=== PATIENT | male | born 1980 | race Caucasian/White ===

== ENCOUNTER 2023-04-09 10:46 | Outpatient (CLI) | payer OTHER, SELFPAY | END 2023-04-09 10:47 | disposition home or self-care (01) | LOC: RT 10:46 | PROVIDERS: PCP Nurse Practitioner Family; Visit Provider Chiropractor | DX: J40 Bronchitis, not specified as acute or chronic (principal) | CPT/HCPCS: 94010 ==

== ENCOUNTER 2024-08-25 12:38 | Outpatient (CLI) | payer OTHER, SELFPAY ==
--- NOTE | 2024-08-25 12:40 | MR_ITS ---
WS: [id number] MRI LEFT KNEE HISTORY: L KNEE PAIN, lateral knee pain. COMPARISON: None available. Anterior cruciate ligament: Intact. Posterior cruciate ligament: Intact. Medial collateral ligament: Intact. Posterior lateral corner structures: Mild increased T2 signal in the popliteus tendon with a small amount of adjacent fluid. No full-thickness tear. Medial menisci: Intact. Normal signal, size and shape. Lateral meniscus: Intact. Normal signal, size and shape. Extensor mechanism: Distal quadriceps tendon and patellar tendons are intact. Fluid and soft tissue: No joint effusion. No Balderas's cyst. Osseous and articular structures: Patellofemoral compartment: Normal. Medial compartment: Normal. Lateral compartment: Very slight change in signal involving the weightbearing surface femoral condyle cartilage. Mild softening of the cartilage but no full- thickness defect. No marrow edema. MR/MR knee LT con* [id number] IMPRESSION: 1. No meniscal tear. 2. Mild popliteus tendon sprain. 3. No ACL tear. 4. 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 No underlying marrow edema.
--- NOTE | 2024-08-25 12:40 | MR_ITS ---
WS: [id number] MRI LEFT HAND WITHOUT CONTRAST. COMPARISON: Radiograph 04/16/2015 Multiplanar, multisequence imaging is performed without contrast. History: Chronic thumb pain. Moderate narrowing of the first carpometacarpal articulation with dorsal and lateral subluxation of the first metacarpal with respect to the trapezium. Small amount of fluid in the first carpometacarpal joint space. Hypertrophic bone formation consistent with osteophyte formation involving the trapezium and the proximal metacarpal. There are subchondral cystic changes at the metacarpal base and trapezium. The dorsal radial ligament is not identified. Anterior oblique ligament appears elongated and partially stripped from the first metacarpal. Triangular osseous density measures 5.8 mm along the medial first carpometacarpal joint. This may be a small osteophyte or bone fragment. Potentially could represent an accessory ossicle also. This is contributing to displacement of the anterior cold-like ligament. The extensor pollicis brevis tendon remains intact. No additional marrow edema within the bones of the hand. Very slight narrowing of the interphalangeal joints. No masses or ganglions are identified. Very mild early osteoarthritic changes at the first IP joint also. MR/MR hand LT wo con* [id number] IMPRESSION: 1. Dorsal lateral subluxation of the proximal first metacarpal with respect to the trapezium. 2. Subchondral cystic changes in the trapezium and base of the first metacarpa l with narrowing of the joint space and hypertrophic bone formation. 3. Partial stripping of the anterior oblique ligament. Dorsal radial ligament is not identified and may be completely torn or its small caliber. 4. Triangular intra-articular body at the CMC joint measures 5.8 mm. This may be an osteophyte or accessory ossicle or avulsion fracture with nonunion. No ac cessory ossicle or fracture was identified on prior radiograph of 04/16/2015 at t his location.
== END 2024-08-25 12:39 | disposition home or self-care (01) ==
LOC: RAD 12:39
PROVIDERS: PCP Nurse Practitioner Family; Visit Provider Nurse Practitioner Family
DX: S63.062A Subluxation of metacarpal (bone), proximal end of left hand, initial encounter (principal); M89.342 Hypertrophy of bone, left hand; S83.8X2A Sprain of other specified parts of left knee, initial encounter; X58.XXXA Exposure to other specified factors, initial encounter
CPT/HCPCS: 73218; 73721

== ENCOUNTER 2024-09-22 10:23 | Outpatient (CLI) | payer OTHER, SELFPAY ==
[2024-09-22 12:19] LABS: Glucose Urine UA Negative (Normal); Nitrate Urine Negative (Negative); Specific Gravity, Urine 1.006 (1.005-1.030)
[2024-09-22 12:25] LABS: Add Urine Microscopic? YES
[2024-09-22 12:26] LABS: Hematocrit 48.8 % (37-53); Hemoglobin 15.60 g/dL (11.27-16.99); Mean Corpuscular HGB Conc 32.0 g/dL (30-55); Mean Corpuscular Hemoglobin 26.7 pg (27-33); Mean Corpuscular Volume 83.6 fl (82-101); Nucleated Red Blood Cells % 0 %; Platelet Count 290 10^3/cmm (157-399); Red Blood Count 5.84 10^6/uL (3.85-5.65); White Blood Count 4.91 10^3/uL (3.29-11.43)
[2024-09-22 12:46] LABS: Alanine Aminotransferase 40 U/L (0-41); Albumin Level 4.4 g/dL (3.5-5.2); Alkaline Phosphatase 69 U/L (40-130); Anion Gap 14.3 (5-19); Aspartate Amino Transferase 24 U/L (0-40); Blood Urea Nitrogen 12 mg/dL (6-20); Calcium 8.7 mg/dL (8.5-10.5); Carbon Dioxide 26 mmol/L (22-29); Chloride 103 mmol/L (98-107); Globulin 2.9 g/dL (1.3-4.6); Glucose 91 mg/dL (65-115); Osmolality Calculated 287 mOsm/kg (285-295); Potassium 4.3 mmol/L (3.5-5.1); Sodium 139 mmol/L (136-145); Total Protein 7.3 g/dL (6.6-8.7)
== END 2024-09-22 10:24 | disposition home or self-care (01) ==
PROVIDERS: PCP Family Medicine Geriatric Medicine; Visit Provider Orthopaedic Surgery
DX: Z01.818 Encounter for other preprocedural examination (principal); M18.12 Unilateral primary osteoarthritis of first carpometacarpal joint, left hand
CPT/HCPCS: 36415; 80053; 81001; 85025; 99204

== ENCOUNTER 2024-10-26 06:54 | Day surgery (SDC) | payer OTHER, SELFPAY ==
[2024-10-26] VITALS (10 sets, daily range): BP systolic 117–152; BP diastolic 72–102; PULSE 63–90; RESP 10–18; TEMP 36.2–36.5; O2SAT 96–98; BMI 30.8
--- NOTE | 2024-10-26 07:41 | P.ANESASSM_ITS ---
Pre-Anesthetic Assessment Height/Weight: Height 1.96 m Weight 117.934 kg Temp Pulse Resp BP Pulse Ox O2 Del Method 97.2 F L 76 17 139/89 97 Room Air 10/26/24 07:13 10/26/24 07:13 10/26/24 07:13 10/26/24 07:13 10/26/24 07:13 10/26/24 07:14 Operation Date: 10/26/24 08:50 Proposed Procedures p LEFT FIRST Carpometacarpal Joint Fusion(Left) - Ken Yin MD Familial anesthetic complications: None Was Beta Denia taken within 24 hours: N/A Was Clonidine taken within 24 hours: N/A Last intake: Intake Last Liquid Date 10/25/24 Last Liquid Time 22:00 Last Solid Date 10/25/24 Last Solid Time 20:00 Social No alcohol and No tobacco Exam alert, oriented x 3, clear to auscultation bilaterally and regular rate & rhythm Airway Mallampati: Class I Dentition: other ([place]ising) Anesthetic Plan ASA status: 1 Anesthesia: General Risk of > 500 ml blood loss (7ml/kg in children): No Medications/Allergies Home Medications ?Medication ?Instructions ?Recorded ?Confirmed ?Last Taken ?Type meloxicam 7.5 mg tablet 7.5 mg PO DAILY PRN Pain (Sc lorna 10/19/24 10/26/24 10/11/24 History Score 1-3) methocarbamol 750 mg tablet 750 mg PO DAILY PRN Pain 0 10/19/24 10/26/24 10/11/24 History Allergies Allergy/AdvReac Type Severity Reaction Status Date / Time No Known Allergies Allergy Verified 10/26/24 06:59 Current Medications Generic Name Dose Route Start Last Admin Trade Name Freq PRN Reason Stop Dose Admin Sodium Chloride 1,000 mls @ 30 mls/hr 10/26/24 07:00 10/26/24 07:26 Sodium Chloride 0.9% IV 10/27/24 06:59 30 mls/hr .Q24H CLAUDIA Administration PFSH Anesthesia Social History Smoking and tobacco/nicotine status: never used tobacco/nicotine
--- NOTE | 2024-10-26 08:19 | W.PM.OPSUD ---
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
[2024-10-26] MEDS: ceFAZolin 2,000 mg SDV 2000 MG IVP (08:38)
[2024-10-26] MEDS: BUPivacaine 0.5% INJ 30 mL INJECTION (09:53)
--- NOTE | 2024-10-26 09:56 | P.OP_ITS ---
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 Anesthesia: General Tourniquet time: 31 minutes at 250 mmHg EBL: None Indications: Omar is a 44-year-old white male presented the orthopedic clinic with debilitating pain at the base of his left thumb. He has difficulty gripping grasping. He is losing opposition of the thumb. X-rays demonstrated subluxation of the first metacarpal off of the trapezius as well as osteoarthritic changes in the area. 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 He is understanding he will lose opposition of the thumb but the majority of the functions of his hand will remain the same. All risk benefits treatment alternatives discussed he is agreeable to this at this time. Procedure: After obtaining consent patient was taken to the operating room on his [facility] and had general anesthetic administered. Once good anesthesia achieved pneumatic cuffs placed on the proximal left arm. Left arm was prepped and draped usual fashion After surgical timeout Esmarch wrap was used to exsanguinate the arm and then the tourniquet was inflated to 250 mmHg. A curvilinear incision was made along the border between the volar and dorsal skin lines of the left hand just over the first CMC joint of left thumb. Sharp dissection taken down to subcutaneous tissue electrocautery used to hemostasis. Sharp dissection taken on down between anatomic structures to the bony surface of the joint and capsule was raised both dorsally and volarly to expose the joint. At this point using a small bur the remainder of the articular cartilage was removed from both bones. Then they were sculpted to fit together in a neutral position. Also a drill hole was placed on up into the medullary canal of the first metacarpal to allow for blood flow. Once adequate debridement had been achieved bone morphogenic protein was placed between the 2 bones and impacted. The thumb was then held on the neutral position with slight abduction and extension, and pinned in place with three 0.45 K wires. Interoperative fluoroscopy demonstrated adequate fixation and positioning of the joint. Further BMP was packed around the joint line and deep structure reapproximated 3-0 Vicryl [id number] sutures. Subcutaneous tissue reapproximated 3-0 Vicryl interrupted sutures. Skin was closed with 3-0 running nylon suture. Pin balls were placed over each of the pins and the pins were cut after appropriate length. Pneumatic cuff deflated after 31 minutes of tourniquet time. Wound was then dressed with Xeroform gauze sterile gauze dressing sterile Webril and a thumb spica splint was applied with Fei wrap for compression. Patient was awakened transferred to cover stable condition It should also be noted that 15 cc of half of percent Marcaine was placed in the wound area for postoperative pain management.
--- NOTE | 2024-10-26 11:15 | ANE.PACU2 ---
Inpatient post-anesthesia follow up: Airway intact: Yes Vital signs: Temperature 97.1 F Pulse Rate 63 Respiratory Rate 16 Blood Pressure 149/97 Pulse Oximetry 96 Oxygen Delivery Me thod Room Air Oxygen Flow Rate Fraction of Inspir ed Oxygen Hydration adequate: Yes Nausea and vomiting: No Pain level: 1 Mental status: Baseline
== END 2024-10-26 11:18 | disposition home or self-care (01) ==
PROVIDERS: PCP Family Medicine Geriatric Medicine; Visit Provider Orthopaedic Surgery
PROC: (CPT 26860; principal; 2024-10-26 08:40)
DX: M19.042 Primary osteoarthritis, left hand (principal)
CPT/HCPCS: 26860; C1713; C1734; J0131; J0690; J1100; J1885; J2250; J2405; J2704; J3010; J3490; J7030; J9999

== ENCOUNTER → 2024-11-08 08:27 | Outpatient (BNVA) | payer OTHER, SELFPAY | PROVIDERS: PCP Family Medicine Geriatric Medicine; Visit Provider Student in an Organized Health Care Education/Training Program | DX: M25.562 Pain in left knee (principal); M94.262 Chondromalacia, left knee; S83.92XA Sprain of unspecified site of left knee, initial encounter; X58.XXXA Exposure to other specified factors, initial encounter | CPT/HCPCS: 73560; 73565 ==

== ENCOUNTER 2024-11-08 09:45 | Outpatient (CLI) | payer OTHER, SELFPAY | END 2024-11-08 09:46 | LOC: SPT 09:46 | PROVIDERS: PCP Family Medicine Geriatric Medicine; Visit Provider Student in an Organized Health Care Education/Training Program | DX: Z46.89 Encounter for fitting and adjustment of other specified devices (principal); M17.12 Unilateral primary osteoarthritis, left knee; M94.262 Chondromalacia, left knee | CPT/HCPCS: L1851 ==

== ENCOUNTER → 2024-11-10 09:17 | Outpatient (BNVA) | payer OTHER, SELFPAY | PROVIDERS: PCP Family Medicine Geriatric Medicine; Visit Provider Orthopaedic Surgery | DX: M25.532 Pain in left wrist (principal); M18.12 Unilateral primary osteoarthritis of first carpometacarpal joint, left hand | CPT/HCPCS: 29075; 73110; 99024 ==

== ENCOUNTER → 2024-11-29 10:46 | Outpatient (BNVA) | payer OTHER, SELFPAY | PROVIDERS: PCP Family Medicine Geriatric Medicine; Visit Provider Orthopaedic Surgery | DX: M18.12 Unilateral primary osteoarthritis of first carpometacarpal joint, left hand (principal); M79.642 Pain in left hand | CPT/HCPCS: 29075; 73110; 99024 ==

== ENCOUNTER → 2024-12-27 08:12 | Outpatient (BNVA) | payer OTHER, SELFPAY | PROVIDERS: PCP Family Medicine Geriatric Medicine; Visit Provider Orthopaedic Surgery | DX: M18.12 Unilateral primary osteoarthritis of first carpometacarpal joint, left hand (principal) | CPT/HCPCS: 73110 ==

== ENCOUNTER 2024-12-27 10:39 | Outpatient (CLI) | payer OTHER, SELFPAY | END 2024-12-27 10:40 | disposition home or self-care (01) | LOC: SPT 10:40 | PROVIDERS: PCP Family Medicine Geriatric Medicine; Visit Provider Orthopaedic Surgery | DX: Z47.89 Encounter for other orthopedic aftercare (principal); Z98.890 Other specified postprocedural states | CPT/HCPCS: 99024; L3807 ==

== ENCOUNTER → 2025-01-24 07:56 | Outpatient (BNVA) | payer OTHER, SELFPAY | PROVIDERS: PCP Family Medicine Geriatric Medicine; Visit Provider Orthopaedic Surgery | DX: M18.12 Unilateral primary osteoarthritis of first carpometacarpal joint, left hand (principal) | CPT/HCPCS: 73110; 99213 ==

== ENCOUNTER → 2025-02-23 10:03 | Outpatient (BNVA) | payer OTHER, SELFPAY | PROVIDERS: PCP Family Medicine Geriatric Medicine; Visit Provider Orthopaedic Surgery | DX: M18.12 Unilateral primary osteoarthritis of first carpometacarpal joint, left hand (principal) | CPT/HCPCS: 73130; 99024 ==